=== PATIENT | female | born 1955 | race Caucasian/White ===

== ENCOUNTER 2018-05-29 06:07 | Emergency (ER) | payer OTHER ==
[~2018-05-29] VITALS: Ht 177.8 cm; Wt 111.1 kg
[2018-05-29] MEDS ORDERED: XANAX1 MG PO (06:22)
[2018-05-29] MEDS ORDERED: CELEXA20 MG PO (06:24)
[2018-05-29] MEDS ORDERED: 24HR ALLERGY REL5 MG PO (06:24)
[2018-05-29] MEDS ORDERED: CENTRUM SILVER1 EAC4 PO (06:25)
[2018-05-29] MEDS ORDERED: LISINOPRIL20 MG PO (06:25)
[2018-05-29] MEDS ORDERED: NORVASC2.5 MG PO (06:26)
[2018-05-29] MEDS ORDERED: AMBIEN 5 MG TABL5 M1 PO (06:27)
[2018-05-29] MEDS ORDERED: KAPSPARGO SPRIN25 MG PO (06:28)
[2018-05-29] MEDS ORDERED: NEPHROCAPS SOFT1 CAP PO (06:28)
[2018-05-29 06:52] LABS: ABSOLUTE BASOPHILS 0.1 thou/uL (0.0-0.2); ABSOLUTE EOSINOPHILS 0.2 thou/uL (0.0-0.7); ABSOLUTE LYMPHOCYTES 1.7 thou/uL (0.8-5.3); ABSOLUTE MONOCYTES 0.6 thou/uL (0.0-1.2); ABSOLUTE NEUTROPHILS 6.3 thou/uL (1.6-8.1); BASOPHILS 0.8 %; EOSINOPHILS 2.1 %; HEMATOCRIT 40.8 % (37.0-47.0); HEMOGLOBIN 13.6 gm/dL (12.0-15.0); LYMPHOCYTES 19.7 %; MCH 30.8 pg (26.0-34.0); MCHC 33.3 g/dL (28.0-37.0); MCV 92.6 fL (80.0-100.0); MONOCYTES 7.1 %; MPV 7.7 fl. (7.2-11.1); NUCLEATED RBCS 0 /100WBC; PLATELET COUNT* 291 thou/uL (150-400); POLYS 70.3 %; RDW-CV 13.1 % (10.5-14.5); WBC 8.9 thou/uL (4.0-11.0)
[2018-05-29 07:09] LABS: ANION GAP 10 mmol/L (7-16); BUN 7 mg/dL (7-18); CALCIUM 9.2 mg/dL (8.5-10.1); CHLORIDE 102 mmol/L (98-107); CO2 27 mmol/L (21-32); CREATININE 0.8 mg/dL (0.6-1.3); GLUCOSE 117 mg/dL (70-99); POTASSIUM 3.2 mmol/L (3.5-5.1); SODIUM 139 mmol/L (136-145)
[2018-05-29 07:13] LABS: PROTIME 10.1 Seconds (9.20-11.50)
[2018-05-29 07:20] LABS: ALBUMIN 3.2 g/dL (3.4-5.0); ALKALINE PHOSPHATASE 62 U/L (46-116); LIPASE 200 U/L (73-393); NT-PRO BRAIN NAT PEPTIDE 155 pg/mL (<300); SGOT 20 U/L (15-37); SGPT 28 U/L (30-65); TOTAL BILIRUBIN 0.3 mg/dL (<0.1-1.0); TOTAL PROTEIN 7.1 g/dL (6.4-8.2); TROPONIN-I LEVEL <0.06 ng/mL (<0.06)
[2018-05-29 07:28] LABS: INFLUENZA A ANTIGEN None Detected (None Detect); INFLUENZA B ANTIGEN None Detected (None Detect)
--- NOTE | 2018-05-29 10:17 | EKG ---
[place] [address] ELECTROCARDIOGRAM REPORT Name: GIRISH FERRARI Room: [facility]#: [id number] Admission: 05/29/18 Attend Phys: Discharge: Date of : 51 Report #: [id number] THIS REPORT FOR: //name// [facility] ED Test Date: 2018-05-29 Test Time: 07:16:33 Pat Name: GIRISH FERRARI Department: Room: Gender: F [employer] Producer: : 1955 Requested By: Hector Xavier Order Number: [id number] MD: Xiang Adhikari Measurements Intervals [place] Rate: 74 P: 37 CO: 151 QRS: 33 QRSD: 143 T: 2 QT: 430 QTc: 477 Interpretive Statements Sinus rhythm Right bundle branch block No previous ECG available for comparison Electronically Signed On 05-29-2018 10:17:46 [employer] by Xiang Adhikari [email or web address] <ELECTRONICALLY SIGNED> By: Xiang Adhikari MD, [facility] 05/29/18 1017 [id number] 0716 Xiang Adhikari MD, FACC /EPI
--- NOTE | 2018-05-29 10:18 | EKG ---
[place] [address] ELECTROCARDIOGRAM REPORT Name: GIRISH FERRARI Room: [facility]#: [id number] Admission: 05/29/18 Attend Phys: Discharge: Date of : 51 Report #: [id number] THIS REPORT FOR: //name// [facility] Test Date: 2018-05-29 Test Time: 08:25:19 Pat Name: GIRISH FERRARI Department: Room: Gender: F Printing Specialist: : [id number] Requested By: Pradeep Owusu Order Number: [id number] MD: Xiang Adhikari Measurements Intervals [place] Rate: 64 P: 28 NC: 151 QRS: 26 QRSD: 138 T: 3 QT: 436 QTc: 450 Interpretive Statements Sinus rhythm Right bundle branch block Electronically Signed On 05-29-2018 10:18:44 PROJECT BU[employer]ER by Xiang Adhikari [email or web address] <ELECTRONICALLY SIGNED> By: Xiang Adhikari MD, [facility] 05/29/18 1018 [id number] 0825 Xiang Adhikari MD, FACC /EPI
[2018-05-29] MEDS ORDERED: VENTOLIN HFA 1818 GM INH (10:53)
[2018-05-29] MEDS ORDERED: PREDNISONE50 MG PO (10:53)
[2018-05-29] MEDS ORDERED: LEVAQUIN 750 M750 MG PO (10:53)
[2018-05-29 11:33] VITALS: BP 149/73
== END 2018-05-29 11:35 | disposition home or self-care (01) ==
LOC: M.ERS 06:07
PROVIDERS: Emergency Medicine
DX: J18.9 Pneumonia, unspecified organism (principal); J44.9 Chronic obstructive pulmonary disease, unspecified; I20.9 Angina pectoris, unspecified; Z88.6 Allergy status to analgesic agent; Z88.8 Allergy status to other drugs, medicaments and biological substances; Z91.041 Radiographic dye allergy status; Z87.891 Personal history of nicotine dependence